=== PATIENT | female | born 1995 | race Caucasian/White ===

== ENCOUNTER 2022-06-03 12:05 | Outpatient (CLI) | payer OTHER, SELFPAY ==
[2022-06-03 22:21] LABS: Chlamydia DNA Amplified* NOT DETECTED (No Detected); GC DNA Amplified* NOT DETECTED (No Detected)
== END 2022-06-03 12:06 | disposition home or self-care (01) ==
PROVIDERS: PCP Physician Assistant; Visit Provider Physician Assistant
DX: Z34.91 Encounter for supervision of normal pregnancy, unspecified, first trimester (principal); Z3A.01 Less than 8 weeks gestation of pregnancy
CPT/HCPCS: 0353U; 86592; 86703; 86762; 86787; 86803; 86850; 86900; 86901; 87086; 87340

== ENCOUNTER 2022-06-03 15:56 | Outpatient (CLI) | payer OTHER, SELFPAY ==
--- NOTE | 2022-06-03 16:00 | CRLHL7_ITS ---
For Patients: As a result of the Cures Act, medical imaging exams and procedure reports are released immediately into your electronic medical record. You may view this report before your referring provider. If you have questions, please contact your health care provider. INDICATION: First trimester scan, establish dates. COMPARISON: None. TECHNIQUE: Real-time early-scale imaging of the pelvis was performed. FINDINGS: Sonographic imaging demonstrates a single living intrauterine gestation. The embryo demonstrates a regular cardiac rate measuring 159 beats per minute. The embryo`s crown-rump length measurement of 1.5 cm corresponds to a gestational age of 7 weeks 6 days with a sonographic due date of 01/14/2023. There is a normal-appearing yolk sac. There are no gross abnormalities noted within the embryo at this early state of development. The gestational sac has a normal appearance. There is no evidence of a perigestational hemorrhage. The amount of fluid within the sac appears appropriate for gestational age. The cervix is closed. The myometrium appears normal. The ovaries are of normal size. There are no suspicious fluid collections noted in the cul-de-sac. IMPRESSION: Normal first trimester OB ultrasound exam. Gestational age calculated at 7 weeks 6 days with a sonographic due date of 01/14/2023. Dictated by Arpit Ha MD @ 06/04/2022 6:40:08 AM (Electronically Signed)
== END 2022-06-03 15:57 | disposition home or self-care (01) ==
LOC: US 15:57
PROVIDERS: PCP Physician Assistant; Visit Provider Physician Assistant
DX: Z34.91 Encounter for supervision of normal pregnancy, unspecified, first trimester (principal); Z3A.01 Less than 8 weeks gestation of pregnancy
CPT/HCPCS: 76817

== ENCOUNTER 2022-08-26 16:53 | Outpatient (CLI) | payer OTHER, SELFPAY ==
--- NOTE | 2022-08-26 17:00 | CRLHL7_ITS ---
For Patients: As a result of the Century Cures Act, medical imaging exams and procedure reports are released immediately into your electronic medical record. You may view this report before your referring provider. If you have questions, please contact your health care provider. INDICATION: Evaluate anatomy. COMPARISON: 06/03/2022 TECHNIQUE: Real time early scale imaging of the fetus was performed as well as color Doppler analysis of the umbilical vessels. FINDINGS: Sonographic imaging demonstrates a single living intrauterine gestation. Fetus demonstrates a regular cardiac rate of 149 beats per minute. Fetus has a vertex position. The placenta lies posteriorly without evidence of placenta previa. The edge of the placenta is located 6.4 cm from the internal cervical os. Amniotic fluid volume appears normal. Single deepest vertical pocket: 3.7 cm. The cervix is closed and measures 3.7 cm in length. The composite ultrasound gestational age is calculated at 20 weeks 3 days with an estimated sonographic due date of 01/10/2023. The estimated weight is 350 grams which lies at the 34th %. The following biometric measurements were obtained: Biparietal diameter: 4.8 cm/20 weeks 4 days 51st% Head circumference: 18.1 cm/20 weeks 4 days 38th% Abdominal circumference: 15.0 cm/20 weeks 2 days 33rd% Femur length: 3.3 cm/20 weeks 3 days 37th% The HC/AC ratio measures: 1.20 range (1.07-1.25) On anatomic survey, there is a normal appearance of the cerebral ventricles, cisterna magna and cerebellum. The cervical, thoracic and lumbar spine are well visualized and appear normal. The diaphragm and stomach appear normal. 5.6 millimeters left renal pelviectasis. There is a normal three-vessel cord and cord insertion site. The four extremities appear normal. IMPRESSION: Concordance of clinical and sonographic dating. Incomplete visualization of the heart structures, nose, lips, profile and cavum septum pellucidi due to position. Short-term follow-up recommended. Left renal pelviectasis measuring 5.6 millimeters. Follow-up in the 3rd trimester recommended. Dictated by Arpit Ha MD @ 08/27/2022 9:11:09 AM (Electronically Signed)
== END 2022-08-26 16:54 | disposition home or self-care (01) ==
LOC: US 16:54
PROVIDERS: PCP Physician Assistant; Visit Provider Physician Assistant
DX: Z34.92 Encounter for supervision of normal pregnancy, unspecified, second trimester (principal); Z3A.20 20 weeks gestation of pregnancy
CPT/HCPCS: 76805

== ENCOUNTER 2022-09-09 14:57 | Outpatient (CLI) | payer OTHER, SELFPAY ==
--- NOTE | 2022-09-09 15:00 | CRLHL7_ITS ---
For Patients: As a result of the Century Cures Act, medical imaging exams and procedure reports are released immediately into your electronic medical record. You may view this report before your referring provider. If you have questions, please contact your health care provider. INDICATION: Incomplete visualization of the heart structures, nose, lips, profile and cavum septum pellucidi due to position. COMPARISON: 08/26/2022 TECHNIQUE: Real time early scale imaging of the fetus was performed. FINDINGS: Sonographic imaging demonstrates a single living intrauterine gestation. Fetus demonstrates a regular cardiac rate of 134 beats per minute. Fetus has a vertex position. The placenta lies posterior. Normal amniotic fluid with single deepest pocket 5.8 cm. Normal cavum septi pellucidi. The nose, lips, and facial profile appear normal. There is a normal four-chamber heart view and the left and right ventricular outflow tracts appear normal. IMPRESSION: Normal heart structures, nose, lips, profile and cavum septum pellucidi. Dictated by Arpit Ha MD @ 09/10/2022 12:13:38 PM (Electronically Signed)
== END 2022-09-09 14:58 | disposition home or self-care (01) ==
LOC: US 14:58
PROVIDERS: PCP Physician Assistant; Visit Provider Physician Assistant
DX: O35.9XX0 Maternal care for (suspected) fetal abnormality and damage, unspecified, not applicable or unspecified (principal)
CPT/HCPCS: 76816

== ENCOUNTER 2022-10-27 09:40 | Outpatient (CLI) | payer BC, SELFPAY | END 2022-10-27 09:41 | disposition home or self-care (01) | LOC: NFLDREF 10-30 13:35 | PROVIDERS: PCP Physician Assistant; Referring Provider Physician Assistant; Visit Provider Obstetrics & Gynecology | DX: Z34.90 Encounter for supervision of normal pregnancy, unspecified, unspecified trimester (principal) | CPT/HCPCS: 86592 ==

== ENCOUNTER 2022-11-19 12:59 | Outpatient (CLI) | payer BC, SELFPAY ==
--- NOTE | 2022-11-19 13:00 | CRLHL7_ITS ---
For Patients: As a result of the Century Cures Act, medical imaging exams and procedure reports are released immediately into your electronic medical record. You may view this report before your referring provider. If you have questions, please contact your health care provider. HISTORY: Follow-up left renal pelvis. COMPARISON: Previous OB ultrasound from 09/09/2022. TECHNIQUE: Ultrasound examination of the is performed with transabdominal technique. FINDINGS: A single intrauterine gestation is seen in cephalic presentation with regular cardiac activity at 137 beats per minute. The placenta is posterior and is free of the cervical os. The placental grade is 1 and the amniotic fluid volume is normal. Single deepest vertical pocket: Normal at 4.6 cm. The left renal pelvis remains mildly dilated at 7 millimeters. The right kidney is normal in appearance. IMPRESSION: Single intrauterine gestation in cephalic presentation with regular cardiac activity. Deepest vertical pocket normal at 4.6 cm. Continued mild dilatation of the left renal pelvis, now measuring 7 millimeters. Dictated by Sudeep Nguyen MD @ 11/19/2022 8:20:04 PM (Electronically Signed)
== END 2022-11-19 13:00 | disposition home or self-care (01) ==
LOC: US 12:59
PROVIDERS: PCP Physician Assistant; Visit Provider Obstetrics & Gynecology
DX: O35.EXX0 Maternal care for other (suspected) fetal abnormality and damage, fetal genitourinary anomalies, not applicable or unspecified (principal); Z3A.32 32 weeks gestation of pregnancy
CPT/HCPCS: 76816

== ENCOUNTER 2022-12-16 14:25 | Outpatient (CLI) | payer BC, SELFPAY | END 2022-12-16 14:26 | disposition home or self-care (01) | LOC: NFLDREF 12-18 08:26 | PROVIDERS: PCP Physician Assistant; Referring Provider Physician Assistant; Visit Provider Advanced Practice Midwife | DX: Z34.03 Encounter for supervision of normal first pregnancy, third trimester (principal); Z36.85 Encounter for antenatal screening for Streptococcus B; Z3A.36 36 weeks gestation of pregnancy | CPT/HCPCS: 87081; 87653 ==

== ENCOUNTER 2023-01-15 15:51 | Inpatient (IN) | payer BC, SELFPAY ==
[2023-01-15 16:08] VITALS: PULSE 120; RESP 18; TEMP 36.8; O2SAT 98
[2023-01-15 16:10] VITALS: BMI 40.6
[2023-01-15 16:13] VITALS: PULSE 114; O2SAT 97
[2023-01-15 16:14] VITALS: BP 120/76; PULSE 101
[2023-01-15 17:09] VITALS: BP 126/75; PULSE 93
[2023-01-15] MEDS: miSOPROStoL 25 MCG/0.25 TABLET VAGINAL ×3 (17:09→22:52)
[2023-01-15 17:32] LABS: Basophils Absolute Auto 0.02 K/uL (0.00-0.30); Basophils Percent Auto 0.2 % (0.0-3.0); Eosinophils Absolute Auto 0.06 K/uL (0.00-0.50); Eosinophils Percent Auto 0.7 % (0.0-7.0); Hematocrit 38.2 % (33.0-51.0); Hemoglobin* 12.8 gm/dL (12.0-16.0); Immature Granulocytes Abs Auto 0.02 K/uL (0.00-0.30); Immature Granulocytes Pct Auto 0.2 %; Lymphocytes Percent Auto 19.7 % (20-44); Mean Corpuscular HGB Conc 34 gm/dL (32-36); Mean Corpuscular Hemoglobin 30 pg (26-34); Mean Corpuscular Volume 89 fL (80-100); Monocytes Percent Auto 6.1 % (0.0-11.0); Neutrophils Percent Auto 73.1 % (42.0-72.0); Platelet Count* 160 K/uL (140-440); RDW Coefficient of Variation % 12.7 % (11.5-15.5); Red Blood Count 4.28 m/uL (4.00-5.20); White Blood Count* 8.83 K/uL (4.50-11.00)
[2023-01-15 17:43] LABS: Slide Review Reflex No
--- NOTE | 2023-01-15 18:10 | W.PM.LDBA ---
Subjective History of Present Illness Time Seen by Provider: 18:10 Date Seen: 01/15/23 Narrative: Patient is being admitted to Labor and Delivery for cervical ripening followed by IOL. She is a 27 year old at 40 & 6/7 weeks gestation. Her full history and physical was dictated by Dr. Dey on 12/23/22. Please see this for details. Specific Issues/Plans G1 [place] gender H&P done by Dr. Dey on 12/23/22 1. Obesity: BMI 38.4 Hemoglobin A1c: 4.8% Aspirin 81 mg 2. Mild left renal pelviectasis, 5.6 mm on anatomy scan Follow-up ultrasound 3rd trimester: 7 mm at 32 weeks Level 2 US 11/24/22: Cephalic, posterior placenta, and the P 4 0.7 cm, EFW 27%, AC 53%. Renal pelves measured within normal limits. 3. Could not tolerate glucola x2. Doing home BS, 1st week of blood sugars revealed some elevations, was told to monitor for another 7 days Normal upon repeat monitoring 4. GBS positive. No antibiotic allergies. Ampicillin in labor. Flu shot: Declines COVID vaccination: Not vaccinated, declines Tdap: Given, 11/06/22 OB - Problem Based A/P Additional Plan (1) Encounter for induction of labor: Start date: 01/15/23 Start time: 17:00 Status: Acute Plan: 1. Start vaginal Cytotec 25 mcg vaginally every 3 hours as the vertex is high and the cervix is posterior making the Cook catheter placement somewhat challenging. 2. Start Pitocin if contractions are too close together to dose more Cytotec or after maximum of 5 doses of [address] 3. Dr. Edna Hooks will be caring for the patient starting at 7:00 a.m. on 01/16/2023 OB Exam Physical Exam Vital signs: Temp Pulse Resp BP Pulse Ox 98.3 F 93 18 126/75 97 01/15/23 16:08 01/15/23 17:09 01/15/23 16:08 01/15/23 17:09 01/15/23 16:13 Narrative: GENERAL APPEARANCE: Pleasant, , well-groomed woman in no acute distress. VITAL SIGNS: as noted in nursing notes HEAD: Normocephalic, atraumatic. LUNGS: Clear to auscultation bilaterally without wheezes, rales or rhonchi. HEART: Regular rate and rhythm with normal S1 and S2. No gallop, rub or murmur. ABDOMEN: Gravid. Soft, nontender, nondistended, with normal bowels sounds throughout. EFM: [place] 130. Accelerations: Present. Decelerations: Absent. Reactive. Category 1. PRESENTATION: Vertex by Laith's maneuvers. SVE per nursin cm/ 50 %/ -3/soft/posterior. Leong score: 4. EXTREMITIES: No cyanosis, clubbing, or edema. No varicosities. NEUROLOGIC: Normal gait and balance. Normal deep tendon reflexes at bilateral patella 2+/2, equal without clonus. PSYCHIATRIC: alert and oriented x3. Normal speech pattern, eye contact and affect. SKIN: Warm, dry, and well perfused. Good turgor. No lesions, nodules or rashes.
[2023-01-15 19:48] VITALS: BP 129/79; PULSE 71; RESP 18; TEMP 36.9
[2023-01-15] MEDS: hydrOXYzine pamoate 25 MG CAPSULE 100 MG PO (21:31)
[2023-01-15] MEDS: MORPHINE 10 MG/ML inj IM (21:31)
[2023-01-15 22:51] VITALS: BP 129/81; PULSE 85; RESP 16; TEMP 37
[2023-01-16] VITALS (89 sets, daily range): BP systolic 92–174; BP diastolic 47–103; PULSE 30–142; RESP 16–18; TEMP 36.6–37.2; O2SAT 81–100
[2023-01-16] MEDS: ACETAMINOPHEN 500 MG TABLET 1000 MG PO ×2 (02:33→12:32)
[2023-01-16] MEDS: LACTATED RINGERS 1000 ML 1,000 ML 125 ML IV (02:55)
[2023-01-16] MEDS: ONDANSETRON 2 MG/ML inj 4 MG IV (02:55)
[2023-01-16] MEDS: fentaNYL 100 MCG/2 ML inj IVP (03:32)
[2023-01-16] MEDS: LACTATED RINGERS 1000 ML 1,000 ML 500 ML IV (04:07)
[2023-01-16] MEDS: LIDOCAINE 2% (PF) 5 ML VIAL EPIDURAL (04:28)
[2023-01-16] MEDS: ROPIVACAINE 0.2% 100 ml 100 ML 12 MG EPIDURAL (04:29)
--- NOTE | 2023-01-16 04:35 | P.ANBPRC_ITS ---
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 What is your current living situation?: I presently have a place to live Problems where you live: no known problems In the past 12 months, utilities in danger of being shut off: no In past 12 months, lack of transportation kept you from medical appts, meetings, work, or getting things needed for daily living: no In the past 12 mos, have been you worried that your food would run out before you had money to buy more?: never true In the past 12 mos, the food you bought just didn't last and you didn't have money to buy more?: never true Smoking Status: Never smoker How often does anyone, including family, friends and others, physically hurt you : never How often does anyone, including family, friends and others, insult or talk down to you: never How often does anyone, including family, friends and others, threaten you with harm: never How often does anyone, including family, friends and others, scream or curse at you: never Little interest or pleasure in doing things: not at all Feeling down, depressed, or hopeless: not at all Meds Home Medications and Allergies Home Medications Medication Instructions Recorded Confirmed Type prenat.vits,leander,clr-cgej-hnoha 1 tab PO QDAY 06/03/22 01/15/23 History aspirin 81 mg tablet,delayed 81 mg PO QDAY 07/01/22 01/15/23 History release (Adult Aspirin Regimen) Allergies Allergy/AdvReac Type Severity Reaction Status Date / Time No Known Drug Allergies Allergy Verified 01/12/23 10:30 Results Labs Labs: Laboratory Results - last 24 hr 01/15/23 17:22 WBC 8.83 RBC 4.28 Hgb 12.8 Hct 38.2 MCV 89 MCH 30 MCHC 34 RDW Coeff of [place] 12.7 Plt Count 160 Neut % (Auto) 73.1 H Lymph % (Auto) 19.7 L [place] % (Auto) 6.1 Eos % (Auto) 0.7 Baso % (Auto) 0.2 Neut # (Auto) 6.50 Lymph # (Auto) 1.70 [place] # (Auto) 0.50 Eos # (Auto) 0.06 Baso # (Auto) 0.02 Abs Immat Gran (auto) 0.02 Imm/Tot Granulo (auto) 0.2 Blood Type A Positive Antibody Screen NEGATIVE Vital Signs Vital Signs: Last Vital Signs Temp 98.7 F 01/16/23 02:08 Pulse 74 01/16/23 04:33 Resp 18 01/16/23 02:08 BP 120/58 L 01/16/23 04:33 Pulse Ox 100 01/16/23 04:32 Weight: 107.229 kg Height: 162.56 cm Anesthesia Procedures Epidural Insertion Patient Location: OB Start Time: 04:00 Stop Time: 04:35 Start Date: 01/16/23 Stop Date: 01/16/23 Reason for Block: primary anesthetic Patient Position: sitting Performed By: Magen Quintana Preanesthetic Checklist: IV checked, risks and benefits discussed, surgical consent, monitors and equipment checked, pre-op evaluation, timeout performed and anesthesia consent Prep: chlorhexidine gluconate Monitoring: blood pressure monitoring, design engineering specialist, continuous pulse oximetry and heart rate Approach: midline Vertebral Space: lumbar (1-5) Needle Type: Tuohy needle Injection Technique: continuous catheter (catheter) Needle gauge: 17 Needle Length (cm): 10 cm Needle Insertion Depth (cm): 5 Catheter Gauge: 19 Catheter Type: multi-orifice Catheter at skin depth (cm): 10 Test Dose Result: negative and lidocaine 1.5% with epinephrine 1 to 200,000
[2023-01-16] MEDS: AMPICILLIN 2 GM in 0.9 % SODIUM CHLORIDE Mini-bag 100 ML IVPB (04:37)
[2023-01-16] MEDS: PHENYLEPHRINE 100 MCG/ML SYRINGE IVP ×4 (04:38→04:49)
[2023-01-16] MEDS: ePHEDrine sulfate 5 MG/ML inj 10 MG IVP (04:54)
--- NOTE | 2023-01-16 06:23 | P.OBPN_ITS ---
Subjective Time Seen by Provider: 05:45 Date Seen: 01/16/23 Narrative: S: Mirian is comfortable with the epidural. She did not receive any Pitocin. She received 3 doses of Cytotec and went in to labor. First dose of ampicillin for GBS prophylaxis when in at 4:37 a.m. verbal consent obtained for AROM and placement of scalp electrode and intrauterine pressure catheter. Objective: Vital signs per electronic medical record has had 1 blood pressure in severe range for gestational hypertension at 174/103 all the remainder of her blood pressures have been 113-147/54-88. [place]: Q 2 minutes EF IM: 130s, moderate variability, spoke sporadic variable and late decelerations. Accelerations are present. Category 2. SVE: Complete/+2 no membrane for amniotic fluid was identified soak called her spontaneously ruptured at this time. Assessment: Active labor after 3 doses of Cytotec. Postdates induction. 41 weeks 0 days gestation today. Plan: 1. The patient would like to labor down for short period of time as she had quick progression of her labor from 1 cm to complete over 3-4 hours. 2. Expect vaginal delivery. 3. scalp electrode and IUPC were not placed. Objective Vital Signs: Last Vital Signs Temp 98.6 F 01/16/23 04:51 Pulse 130 H 01/16/23 06:23 Resp 18 01/16/23 04:51 BP 174/103 H 01/16/23 06:23 Pulse Ox 99 01/16/23 06:20
--- NOTE | 2023-01-16 07:21 | PM.OBPNL ---
Subjective Time Seen by Provider: 07:15 Date Seen: 01/16/23 Narrative: Mirian received 3 doses of vaginal cytotec for cervical ripening and progressed into active labor. She had An epidural for pain control. She has thus far received 1 dose of ampicillin for GBS prophylaxis. She was found to be complete at 6 AM and pushing since around 6:20. Objective Exam: Gen - In good spirits, pushing slightly on her side. Abd - 7 lbs by [place] Cervical exam - +3 with pushes Vital Signs: Last Vital Signs Temp 98.6 F 01/16/23 04:51 Pulse 96 01/16/23 07:21 Resp 18 01/16/23 04:51 BP 149/74 H 01/16/23 07:21 Pulse Ox 99 01/16/23 06:20 Comments: tracing: Baseline 140 / accels present / intermittent variable decels with contractions / moderate variability Assessment Assessment: active labor (second stage, pushing and progressing well) Station: +3 Status: Category ll Tracing Comments: Category 2, overall reassuring, delivery likely soon Labor Progress: Progressing well in 2nd stage. Anticipate vaginal soon. Maternal Status: GBS +. Will receive only one dose of ampicillin prior to of baby.
[2023-01-16] MEDS: OXYTOCIN 30 unit/500 ML in NS 30 UNIT/500 ML BAG 320 UNIT IVPB (07:50)
[2023-01-16] MEDS: miSOPROStoL 800 MCG/4 TABLET PR (07:58)
--- NOTE | 2023-01-16 08:36 | W.PM.VAGD1_ITS ---
Procedure Procedure Done: [facility] Procedure Details: The patient is a 27 year-old G 1 P 0 admitted on 01/15/2023 at 40 Weeks, 6 Days gestation for induction of labor for postdates .? Cervical exam on admission was 1 cm/ 50 %/ -3/soft/posterior with membranes intact in vertex presentation.? heart rate demonstrated baseline 130 bpm with moderate variability, positive accelerations, no decelerations; a category 1 tracing.? She had 3 doses of vaginal Cytotec for cervical ripening, then progressed into active labor and required no Pitocin augmentation. SROM occurred at 5:45 a.m. on 01/16/2023 with clear fluid. ? Labor Analgesia:? Epidural ? Pitocin:? No ? Complete:? 5:45 a.m. on 01/16/2023 ? Pushing:? 6:40 a.m. ? heart tones during second stage were overall reassuring; she had category 2 tracing with baseline of 140, moderate variability, and recurrent variable decelerations.. ? At 7:50 a.m. a viable male infant delivered in vertex REYNALDO presentation over intact perineum via spontaneous vaginal delivery.? Infant was placed on maternal abdomen.? Cord was clamped and cut after a 60 second delay.? Nose and mouth were bulb suctioned.? weight pending.? 7 at 1 minute and 9 at 5 minutes.? Shoulder dystocia: No.? Nuchal cord: No. ? Placenta delivered spontaneously and complete at 7:56 a.m. with a 3 vessel cord. ? Mother experienced increase in bleeding shortly after of the , and was given 800 mcg of rectal Cytotec for management of suspected uterine atony. Lacerations:? Left periurethral, repaired with 3-0 Vicryl after infiltration with 10 mL of 1% lidocaine. ? Blood loss: 500 mL. Blood loss measurement type: EBL ? Sponge and needles counts are correct. Intrapartal Events: Labor Induction Delivery monitor: external FHT Route of delivery: Laceration description: Periurethral - 1st Degree Delivery repair: Vicryl Estimated blood loss (mL): 500 Anesthesia type: Epidural [place] Gender: Male
[2023-01-16] MEDS: IBUPROFEN 600 MG TABLET PO (15:34)
[2023-01-17 00:12] VITALS: BP 104/70; PULSE 82; RESP 18; TEMP 37.1; O2SAT 97
[2023-01-17 04:13] VITALS: BP 101/69; PULSE 76; RESP 16; TEMP 36.3; O2SAT 98
[2023-01-17] MEDS: ACETAMINOPHEN 500 MG TABLET 1000 MG PO ×3 (07:27→20:47)
[2023-01-17 09:40] VITALS: BP 109/72; PULSE 79; RESP 16; TEMP 36.7; O2SAT 98
[2023-01-17] MEDS: IBUPROFEN 600 MG TABLET PO ×2 (10:01→16:39)
[2023-01-17] MEDS: DOCUSATE SODIUM 100 MG CAPSULE PO (10:01)
--- NOTE | 2023-01-17 12:39 | PM.OBPNVD1 ---
OB - PN:Subj Subjective Time Seen by Provider: 09:15 Date Seen: 01/17/23 Narrative: Overnight patient had no complaints. Her pain is well controlled on oral pain medications. She is tolerating a regular diet. She has passed flatus. She is ambulating without difficulty. Lochia is scant. She is urinating without davis. Patient denies chest pain, SOB, n/v, headache, RUQ pain, vision changes, dizziness. OB - PN: Obj Exam Physical Exam: Vital signs: Temp Pulse Resp BP Pulse Ox O2 Del Method 98.1 F 79 16 109/72 98 Room Air 01/17/23 09:40 01/17/23 09:40 01/17/23 09:40 01/17/23 09:40 01/17/23 09:40 01/17/23 09:40 Narrative: Physical exam: General: No acute distress Psych: Alert and oriented x4, full affect HEENT: Normocephalic, atraumatic Neck: No cervical adenopathy, no thyromegaly Heart: Regular rate and rhythm, no murmur rub or gallop Lungs: Clear to auscultation bilaterally Abdomen: Normoactive bowel sounds, soft, no tenderness, rebound, or guarding, no masses, no hepatosplenomegaly, no hernias. Fundus firm-3 cm below the umbilicus. Skin: No lesions or rashes Lower extremities: No edema or erythema Pelvic exam: Small amount of lochia on pad. OB - PN: Obj Data Labs Labs: Laboratory Results - last 24 hr 01/17/23 06:41 Hgb 11.0 L OB - PN: A/P Delivery Assessment and Plan (1) Status post vaginal delivery: Status: Acute Plan Review: - Admitted for: Induction of labor - Estimated blood loss: 500 mL - Intraoperative Complications: None - Urine output: Adequate - Preop Hgb: 12.8 - Postop Hgb: 11.0 care: - Diet: Advance as tolerated - Fluid: Encourage oral intake - Activity: Encourage ambulation and incentive spirometry - Pain: Acetaminophen, Ibuprofen - DVT prophylaxis: SCDs and TEDs when not ambulating Discharge Planning - Follow Up: follow-up at 2 weeks and 6 weeks in clinic Baby's Status - Fetus: 7, 8. 7 lb 9 oz. male. Infant staying for 48 hours due to inadequate GBS prophylaxis. - Location: Bedside. Dispo: Patient is PPD#1. Need the following milestones: None. Waiting on baby. Anticipate discharge PPD#2. Plan day: 1 Plan: routine care
[2023-01-17 16:40] VITALS: BP 110/74; PULSE 79; RESP 16; TEMP 36.6; O2SAT 99
[2023-01-17 20:42] VITALS: BP 119/82; PULSE 75; RESP 18; TEMP 36.7; O2SAT 97
[2023-01-18 02:15] VITALS: BP 109/75; RESP 16; TEMP 36.9
[2023-01-18] MEDS: ACETAMINOPHEN 500 MG TABLET 1000 MG PO (02:19)
[2023-01-18] MEDS: IBUPROFEN 600 MG TABLET PO (06:15)
[2023-01-18 08:00] VITALS: BP 117/83; PULSE 87; RESP 18; TEMP 37.1; O2SAT 98
[2023-01-18] MEDS: DOCUSATE SODIUM 100 MG CAPSULE PO (08:11)
--- NOTE | 2023-01-18 10:45 | PM.OBDSVD1 ---
DS: Providers Provider Time Seen by Provider: 10:45 Date Seen: 01/18/23 Date of admission: 01/15/23 15:51 Primary care physician: Bhargavi Baird PA-C Admitting Clinician: Edna Hooks MD Attending Physician on discharge: Edna Hooks MD Date of Discharge: 01/18/23 DS: Diagnosis Discharge Diagnosis (1) Status post vaginal delivery: Status: Acute Exam Narrative: Exam Narrative: Physical exam: General: No acute distress Psych: Alert and oriented x4, full affect HEENT: Normocephalic, atraumatic Neck: No cervical adenopathy, no thyromegaly Heart: Regular rate and rhythm, no murmur rub or gallop Lungs: Clear to auscultation bilaterally Abdomen: Normoactive bowel sounds, soft, no tenderness, rebound, or guarding, no masses, no hepatosplenomegaly, no hernias. Fundus firm-3 cm below the umbilicus. Skin: No lesions or rashes Lower extremities: No edema or erythema Pelvic exam: Small amount of lochia on pad. Const: Vital Signs, click to edit/add: Vital Signs - 24 hr 01/17/23 16:40 01/17/23 20:42 01/18/23 02:15 Temperature 97.9 F 98.1 F 98.4 F Pulse Rate [Pulse Oximeter] 79 75 Respiratory Rate 16 18 16 Blood Pressure [Le ft Arm] 110/74 119/82 109/75 Pulse Oximetry 99 97 Oxygen Delivery Me thod Room Air Room Air Room Air 01/18/23 08:00 Temperature 98.8 F Pulse Rate [Pulse Oximeter] 87 Respiratory Rate 18 Blood Pressure [Le ft Arm] 117/83 Pulse Oximetry 98 Oxygen Delivery Me thod Room Air OB - DS: Summary Hospital Course Hospital Course: Mirian is a 27 year old G 1 P 0 at 40.6 weeks gestation that was admitted to the Center on 01/15/23 for IOL 2/2 to postdate. She had an uncomplicated vaginal delivery. She delivered a viable male . She is . the patient has done well. She just stayed an extra day for infant monitor for inadequate GBS ppx. Overnight patient had no complaints. Her pain is well controlled on oral pain medications. She is tolerating a regular diet. She has passed flatus/had BM. She is ambulating without difficulty. Lochia is scant. She is urinating without davis. Patient denies chest pain, SOB, n/v, headache, RUQ pain, vision changes, dizziness. Time spent discussing smoking cessation with patient: 3 to 10 minutes Gender: Male Time Spent with Patient Time attestation: Total time spent providing and/or coordinating discharge services: Discharge Plan Discharge Disposition: Home, Self-Care Date of Admission: 01/15/23 15:51 Attending Provider on Discharge: Cintia Mckeon MD Primary Care Provider: Bhargavi Baird Condition: Stable Anticipated Discharge Date/Time: 01/18/23 09:58 Discharge Medications: New acetaminophen 500 mg Tablet 1,000 mg PO Q6H PRN30 Days Qty: 60 0RF Dermoplast (with menthol) 20-0.5 % Aerosol 1 spray topical QID PRN (Reason: pain) Qty: 56 0RF docusate sodium 100 mg Capsule 100 mg PO DAILY 30 Days Qty: 30 0RF ibuprofen 600 mg Tablet 600 mg PO Q6H PRN30 Days Qty: 60 0RF Lanolin (HPA) 100 % Cream 1 applic topical Q1H PRNQty: 21 0RF simethicone 80 mg Tablet,Chewable 80 - 160 mg PO Q4H PRN (Reason: gas) 30 Days Qty: 30 0RF Continued prenat.vits,leander,kup-wfle-zaefc Tablet 1 tab PO QDAY Discontinued aspirin [Adult Aspirin Regimen] 81 mg tablet,delayed release (DR/EC) 81 mg PO QDAY Discharge Orders: Discharge Order (Routine); Ordered 01/18/23 Ordered By: Cintia Mckeon Patient Education: OB Over the Counter Medication Information, OB Vaginal/Breast Feeding Activity Level: Activity as Tolerated Activity Detail: Pelvic rest for 6 weeks Follow Up Appointments: Bhargavi Baird PADarenC [Primary Care Provider] - Forms: [facility] Info Instructions Discharge Comments: Follow up for appointments at 2 and 6 weeks.
== END 2023-01-18 10:25 | disposition home or self-care (01) | DRG 560 ==
PROVIDERS: Obstetrics & Gynecology; Admitting Provider Obstetrics & Gynecology; PCP Physician Assistant; Visit Provider Obstetrics & Gynecology
DX: O48.0 Post-term pregnancy (principal); O99.824 Streptococcus B carrier state complicating childbirth; O70.0 First degree perineal laceration during delivery; O62.2 Other uterine inertia; O99.214 Obesity complicating childbirth; E66.9 Obesity, unspecified; Z3A.40 40 weeks gestation of pregnancy; Z37.0 Single live birth
CPT/HCPCS: 01967; 36415; 59200; 85018; 85025; 86850; 86900; 86901; A9270; J0290; J2270; J2371; J2405; J2795; J3010; J7120

== ENCOUNTER 2024-09-22 12:05 | Outpatient (CLI) | payer BC, SELFPAY ==
--- NOTE | 2024-09-22 12:15 | CRLHL7_ITS ---
For Patients: As a result of the Cures Act, medical imaging exams and procedure reports are released immediately into your electronic medical record. You may view this report before your referring provider. If you have questions, please contact your health care provider. OB ULTRASOUND FIRST TRIMESTER TRANSVAGINAL INDICATION: Dating, viability. TECHNIQUE: Real time early scale imaging of the fetus was performed. Transvaginal imaging performed. LMP: 07/23/2024. [place] by LMP: 04/29/2025. GA: 8 w, 5 d. Previous US: No. CRL: 1.7 cm. 8 w 1 d. [place]: 05/03/2025. FHR: 169 BPM. Gestational sac: 2.7 cm. Appears within normal limits. Yolk sac: 3.3 mm. Appears within normal limits. Right ovary: Within normal limits. 3.9 x 2.0 x 2.0 cm. CL. Left ovary: N/V. IMPRESSION: 1. Single living intrauterine measuring 8 weeks 1 day with sonographic due date 05/03/2025. 2. Nonvisualization of the left ovary. Corpus luteal cyst right ovary. Arpit Ha M.D. Diagnostic Radiologist [email or web address] SP/Dictated by: Arpit Ha MD @ 09/22/2024 8:32:00 PM (Electronically Signed)
== END 2024-09-22 12:06 | disposition home or self-care (01) ==
LOC: US 12:06
PROVIDERS: PCP Physician Assistant; Visit Provider Physician Assistant
DX: Z34.91 Encounter for supervision of normal pregnancy, unspecified, first trimester (principal); O34.81 Maternal care for other abnormalities of pelvic organs, first trimester; N83.11 Corpus luteum cyst of right ovary; Z3A.08 8 weeks gestation of pregnancy
CPT/HCPCS: 76817; 83021; 86592; 86703; 86704; 86706; 86762; 86787; 86803; 86850; 87086; 87340; 87491; 87591

== ENCOUNTER 2024-12-07 07:30 | Outpatient (CLI) | payer BC, SELFPAY | END 2024-12-07 07:31 | disposition home or self-care (01) | LOC: US 07:31 | PROVIDERS: PCP Family Medicine; Visit Provider Obstetrics & Gynecology | DX: O99.012 Anemia complicating pregnancy, second trimester (principal); E66.01 Morbid (severe) obesity due to excess calories; Z68.41 Body mass index [BMI] 40.0-44.9, adult; Z3A.19 19 weeks gestation of pregnancy | CPT/HCPCS: 76811 ==

== ENCOUNTER 2024-12-28 07:10 | Outpatient (CLI) | payer BC, SELFPAY | END 2024-12-28 07:11 | disposition home or self-care (01) | LOC: US 07:10 | PROVIDERS: PCP Family Medicine; Visit Provider Obstetrics & Gynecology | DX: Z36.2 Encounter for other antenatal screening follow-up (principal); Z3A.22 22 weeks gestation of pregnancy | CPT/HCPCS: 76816 ==

== ENCOUNTER 2025-02-08 08:15 | Outpatient (CLI) | payer BC, SELFPAY | END 2025-02-08 08:16 | disposition home or self-care (01) | LOC: NFLDREF 02-14 09:12 | PROVIDERS: PCP Family Medicine; Referring Provider Family Medicine; Visit Provider Obstetrics & Gynecology | DX: Z34.93 Encounter for supervision of normal pregnancy, unspecified, third trimester (principal) | CPT/HCPCS: 86592 ==

== ENCOUNTER 2025-02-15 14:49 | Outpatient (CLI) | payer BC, SELFPAY | END 2025-02-15 14:50 | disposition home or self-care (01) | LOC: US 14:49 | PROVIDERS: PCP Family Medicine; Visit Provider Obstetrics & Gynecology | DX: O99.213 Obesity complicating pregnancy, third trimester (principal); E66.01 Morbid (severe) obesity due to excess calories; Z68.41 Body mass index [BMI] 40.0-44.9, adult; Z3A.29 29 weeks gestation of pregnancy | CPT/HCPCS: 76816 ==